=== PATIENT | female | born 1995 | race American Indian/Alaskan Native ===

== ENCOUNTER 2018-12-15 01:47 | Emergency (ER) | payer SELFPAY ==
[2018-12-15 02:28] VITALS: BP 129/73
[2018-12-15] MEDS ORDERED: MOTRIN PO ONE (02:29)
[2018-12-15] MEDS ORDERED: MOTRIN ONE (02:33)
[2018-12-15] MEDS ORDERED: DECADRON PO ONE (03:24)
[2018-12-15] MEDS ORDERED: BICILLIN L-A IM STA (03:24)
[2018-12-15] MEDS ORDERED: BENADRYL PO STA (03:24)
--- NOTE | 2018-12-15 03:33 | Emergency Department Report ---
ED ENT HPI - General Chief complaint: Sore Throat Stated complaint: THROAT PAIN/UNABLE TO SWALLOW Time Seen by Provider: 12/15/18 03:24 Source: patient Mode of arrival: Ambulatory Limitations: No Limitations - History of Present Illness MD complaint: sore throat - Related Data Previous Rx's Medication Instructions Recorded Last Taken Type Lidocaine Viscous 2% 10 ml MM Q3H PRN #240 ml 12/15/18 Unknown Rx Allergies Allergy/AdvReac Type Severity Reaction Status Date / Time No Known Allergies Allergy Unverified 12/15/18 02:27 ED Dental HPI - General Chief complaint: Sore Throat Stated complaint: THROAT PAIN/UNABLE TO SWALLOW Time Seen by Provider: 12/15/18 03:24 Source: patient Mode of arrival: Ambulatory Limitations: No Limitations - Related Data Previous Rx's Medication Instructions Recorded Last Taken Type Lidocaine Viscous 2% 10 ml MM Q3H PRN #240 ml 12/15/18 Unknown Rx Allergies Allergy/AdvReac Type Severity Reaction Status Date / Time No Known Allergies Allergy Unverified 12/15/18 02:27 ED Review of Systems ROS: Stated complaint: THROAT PAIN/UNABLE TO SWALLOW Other details as noted in HPI ED Past Medical Hx - Past Medical History Previous Medical History?: No - Surgical History Past Surgical History?: Yes Additional Surgical History: Abdominal Pain - Social History Smoking Status: Never Smoker Substance Use Type: None - Medications Home Medications: Home Medications Medication Instructions Recorded Confirmed Last Taken Type Lidocaine Viscous 2% 10 ml MM Q3H PRN #240 ml 12/15/18 Unknown Rx ED Physical Exam - General Limitations: No Limitations ED Course Vital Signs 12/15/18 02:24 Temperature 99 F Pulse Rate 94 H Respiratory 16 Rate Blood Pressure 129/73 O2 Sat by Pulse 98 Oximetry Critical care attestation.: If time is entered above; I have spent that time in minutes in the direct care of this critically ill patient, excluding procedure time. ED Disposition Disposition: - TO HOME OR SELFCARE Condition: Stable Instructions: Pharyngitis (ED), Strep Throat (ED), Mononucleosis (ED) Prescriptions: Lidocaine Viscous 2% 10 ml MM Q3H PRN #240 ml PRN Reason: Sore Throat Referrals: [facility] [Provider Group] - 3-5 Days
== END 2018-12-15 05:15 | disposition home or self-care (01) ==
LOC: ED 01:47
DX: J02.9 Acute pharyngitis, unspecified (principal)
CPT/HCPCS: 87430; 96372; 99283; J0561; J1100

== ENCOUNTER 2020-01-26 13:47 | Emergency (ER) | payer SELFPAY ==
[2020-01-26] MEDS ORDERED: IPRATROPIUM 0.02% NEBU 2.5 ML IH ONE (15:29)
[2020-01-26] MEDS ORDERED: ALBUTEROL 2.5 MG/3 ML NEBU IH ONE (15:29)
[2020-01-26] MEDS ORDERED: dexAMETHasone 20 MG/5 ML VIAL IM ONE (15:29)
--- NOTE | 2020-01-26 16:04 | XRay Report ---
CHEST 2 VIEWS INDICATION / CLINICAL INFORMATION: cough, wheezing. COMPARISON: None available. FINDINGS: SUPPORT DEVICES: None. HEART / MEDIASTINUM: No significant abnormality. LUNGS / PLEURA: No significant pulmonary or pleural abnormality. Slight elevation of the left hemidia phragm. No pneumothorax. ADDITIONAL FINDINGS: No significant additional findings. IMPRESSION: 1. No acute findings. Signer Name: Tucker Taylor MD Signed: 01/26/2020 3:59 PM Workstation Name: [id number]
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
[2020-01-26 17:39] VITALS: BP 159/92
== END 2020-01-26 17:30 | disposition home or self-care (01) ==
LOC: ED 13:47
DX: J20.9 Acute bronchitis, unspecified (principal); F12.10 Cannabis abuse, uncomplicated
CPT/HCPCS: 71046; 96372; 99283; J1100

== ENCOUNTER 2020-07-16 12:13 | Emergency (ER) | payer SELFPAY ==
[2020-07-16] MEDS ORDERED: IBUPROFEN 600 MG TAB PO ONE (13:03)
[2020-07-16] MEDS ORDERED: ONDANSETRON 4 MG ODT TAB PO ONE (13:08)
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
[2020-07-16 14:35] VITALS: BP 155/89
== END 2020-07-16 14:35 | disposition home or self-care (01) ==
LOC: ED 12:13
DX: B34.9 Viral infection, unspecified (principal); Z79.899 Other long term (current) drug therapy
CPT/HCPCS: 87116; 87430; 99283; Q0162

== ENCOUNTER 2020-07-22 14:51 | Emergency (ER) | payer SELFPAY ==
[2020-07-22 14:59] VITALS: BP 133/88
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
--- NOTE | 2020-07-22 15:37 | XRay Report ---
CHEST 2 VIEWS INDICATION: cough. COMPARISON: 01/26/2020 FINDINGS: SUPPORT DEVICES: None. HEART: Within normal limits. LUNGS/PLEURA: No acute air space or interstitial disease. No pneumothorax. ADDITIONAL FINDINGS: None. IMPRESSION: 1. No acute findings. Signer Name: De Gonsalez MD Signed: 07/22/2020 3:33 PM Workstation Name: [id number]
== END 2020-07-22 17:32 | disposition home or self-care (01) ==
LOC: ED 14:51
DX: J06.9 Acute upper respiratory infection, unspecified (principal); R05 Cough; R09.89 Other specified symptoms and signs involving the circulatory and respiratory systems; Z79.899 Other long term (current) drug therapy; Z98.890 Other specified postprocedural states
CPT/HCPCS: 71046

== ENCOUNTER 2020-11-28 08:45 | Emergency (ER) | payer SELFPAY ==
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
[2020-11-28 11:37] LABS: Bilirubin,Urine NEG (Negative); Blood,Urine MOD (Negative); Color,Urine Yellow (Yellow); Mucus,Urine FEW /HPF; Protein,Urine <15 mg/dL mg/dL (Negative); Urobilinogen,Urine < 2.0 mg/dL (<2.0)
[2020-11-28 11:39] LABS: HCG Qualitative,Urine Negative (Negative)
[2020-11-28] MEDS ORDERED: LIDOCAINE-MPF (1%) 10 MG/1 ML VIAL 5 ML INFILTRATI ONE (11:43)
[2020-11-28 12:01] VITALS: BP 147/89
== END 2020-11-28 12:00 | disposition home or self-care (01) ==
LOC: ED 08:45
DX: N89.8 Other specified noninflammatory disorders of vagina (principal); R30.0 Dysuria; J45.909 Unspecified asthma, uncomplicated; Z79.899 Other long term (current) drug therapy; Z98.890 Other specified postprocedural states; Z71.1 Person with feared health complaint in whom no diagnosis is made
CPT/HCPCS: 81001; 81025; 87086; 96372; 99283; J0696